=== PATIENT | female | born 1935 | race Caucasian/White ===

== ENCOUNTER → 2017-08-17 | Outpatient (CLI) | payer MEDICARE, BC ==
[~2017-08-17] MED LIST: ASPI-664 PO; BARIUM SULFATE 135 ML (E-Z HD) PO ONE; CARV6.25 PO; LISI10TA2 PO
--- NOTE | 2017-08-17 11:29 | RADRPT ---
PROCEDURE: Barium swallow. CLINICAL INDICATION: Dysphasia. TECHNIQUE: Barium was administered orally and several spot and overhead radiographs were obtained. 19 images were obtained. Fluoroscopy time is 15 seconds. COMPARISON: No prior study is available for comparison. FINDINGS: There is no aspiration. Swallowing mechanism is normal. Esophageal motility is normal. There is no stricture. There is no mass. There is no ulcer. There is no gastroesophageal reflux. IMPRESSION: 1. Normal esophagogram. RPTAT: QQ .Matias Padilla MD, Date Time Electronically viewed and signed by .Matias Padilla MD, on 08/17/2017 11:29 .R/
== END | disposition home or self-care (01) ==
LOC: RAD 09:51
PROVIDERS: ATTEND Internal Medicine
DX: R13.10 Dysphagia, unspecified (principal)
CPT/HCPCS: 74230